=== PATIENT | female | born 1975 | race Caucasian/White ===

== ENCOUNTER → 2024-05-18 | Outpatient (CLI) | payer BC ==
--- NOTE | 2024-05-18 12:14 | USB ---
Reason for Exam: Clinical finding. Patient History: Menarche at age 12. First Full-Term at age 23. Hysterectomy at age 31. Currently using Estrogen and Progesterone, starting at age 48. Maternal grandmother had breast cancer. Paternal grandmother had breast cancer. Risk Values: Maria Antonia 5 year model risk: 0.8%. NCI Lifetime model risk: 8.2%. Technique: Method: Targeted. Prior Study Comparison: 07/16/2019 Bilateral Diagnostic Mammogram, [facility]. 08/17/2021 Bilateral Diagnostic Mammogram, [facility]. 08/09/2023 Bilateral Screening Mammogram, [facility]. Findings: The lateral section of the breast of the right breast and the area of palpable concern of the left breast were scanned. Complex cyst at the site of the palpable abnormality left 12:00 breast measuring 1.0 cm x 0.7 cm. Six-month follow-up is advised. Smaller scattered cysts are seen in right breast measuring up to 5 mm. No solid masses are seen within either breast. Overall Assessment: Probably benign, BI-RAD 3 Management: Diagnostic Breast Ultrasound of the left breast in 6 months. A clinical breast exam by your physician is recommended on an annual basis and results should be correlated with mammographic findings. This exam should not preclude additional follow-up of suspicious palpable abnormalities. Results were given to the patient verbally at the time of exam. Electronically signed and approved by: Royer Hernandez M.D. Radiologis
--- NOTE | 2024-06-01 12:42 | MM ---
Reason for Exam: Clinical finding. Last screening mammogram was performed 9 month(s) ago. Patient History: Menarche at age 12. First Full-Term at age 23. Hysterectomy at age 31. Currently using Estrogen and Progesterone, starting at age 48. Maternal grandmother had breast cancer. Paternal grandmother had breast cancer. Risk Values: Maria Antonia 5 year model risk: 0.8%. NCI Lifetime model risk: 8.2%. Tissue Density: The breasts are heterogeneously dense, which may obscure small masses. Findings: Analyzed By CAD. Concerns distinct mass or distortion and more specifically at the site of clinical concern no distinct abnormality seen. Vascular calcifications right breast. Overall Assessment: Incomplete: need additional imaging evaluation, BI-RAD 0 Management: Diagnostic Breast Ultrasound of both breasts. . Results were given to the patient verbally at the time of exam. Patient should continue monthly self-breast exams. A clinical breast exam by your physician is recommended on an annual basis. This exam should not preclude additional follow-up of suspicious palpable abnormalities. Note on Maria Antonia scores and lifetime risk: 1. A Maria Antonia score greater than 3% is considered moderate risk. If this is the case, consider specialist referral to assess eligibility for a risk reducing agent. 2. If overall lifetime risk for the development of breast cancer is 20% or higher, the patient may qualify for future screening with alternating mammogram and breast MRI. Electronically signed and approved by: Royer Hernandez M.D. Radiologis
== END | disposition home or self-care (01) ==
LOC: RADMAMWWP 10:33
PROVIDERS: ATTEND Obstetrics & Gynecology
CPT/HCPCS: 77062; 77066